=== PATIENT | male | born 1930 | race African-American/Black ===

== ENCOUNTER 2017-03-26 15:01 | Emergency (ER) | payer MEDICARE, MEDICAID ==
[~2017-03-26] VITALS: Ht 172.7 cm; Wt 70.0 kg
[2017-03-26] MEDS ORDERED: SODIUM CHLORIDE 0.9% 1,000 ML IV ONE (15:44)
[2017-03-26] MEDS ORDERED: KETOROLAC 30MG/ML VIAL IV STA (15:44)
[2017-03-26] MEDS ORDERED: ACETAMINOPHEN 325MG TABLET PO STA (15:44)
[2017-03-26 16:18] LABS: BASOPHILS % 0.3 % (0.0-2.0); HEMATOCRIT. 31.8 % (42.0-52.0); HEMOGLOBIN. 10.6 g/dL (14.0-18.0); LYMPHOCYTES % 13.2 % (20.0-50.0); MEAN CORPUSCULAR HEMOGLOBIN 28.3 pg (28.0-32.0); MEAN CORPUSCULAR VOLUME 85.2 fL (80.0-94.0); MEAN PLATELET VOLUME 7.2 fl (7.4-10.4); MONOCYTES % 4.9 % (2.0-8.0); NEUTROPHILS % 79.6 % (40.0-76.0); PLATELET 158 x1000/uL (130-400); RED BLOOD CELL COUNT 3.74 mill/uL (4.7-6.1); RED CELL DISTRIBUTION WIDTH 13.5 % (11.6-14.6)
[2017-03-26 16:22] LABS: CHLORIDE 104 mEq/L (98-107)
[2017-03-26 16:25] VITALS: BP 113/73
[2017-03-26 16:29] LABS: CARBON DIOXIDE 28 mEq/L (21-32); ETHANOL BLOOD < 10 mg/dL
== END 2017-03-26 16:52 | disposition left against medical advice (07) ==
LOC: ER 15:30 → CANBEDREQ 17:00
DX: R41.82 Altered mental status, unspecified (principal); J44.9 Chronic obstructive pulmonary disease, unspecified; E83.51 Hypocalcemia; D64.9 Anemia, unspecified; Z86.73 Personal history of transient ischemic attack (TIA), and cerebral infarction without residual deficits
CPT/HCPCS: 36415; 71010; 80053; 80329; 82962; 83605; 85025; 93005; 96374; 99285; G0482; J1885; J7030